=== PATIENT | male | born 1955 | race Caucasian/White ===

== ENCOUNTER 2016-03-09 18:15 | Emergency (ER) | payer OTHER ==
[2016-03-09 19:00] VITALS: BP 162/88
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
== END 2016-03-09 21:43 | disposition home or self-care (01) ==
LOC: UCEAST 18:15
DX: S46.312A Strain of muscle, fascia and tendon of triceps, left arm, initial encounter (principal); V18.0XXA Pedal cycle driver injured in noncollision transport accident in nontraffic accident, initial encounter; Y93.55 Activity, bike riding; Y92.9 Unspecified place or not applicable; I10 Essential (primary) hypertension; Z79.01 Long term (current) use of anticoagulants; Z87.891 Personal history of nicotine dependence
CPT/HCPCS: 99213; G0463

== ENCOUNTER → 2016-04-03 09:20 | Day surgery (SDC) | payer OTHER ==
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
[~2016-04-03 09:20] MED LIST: Buffered Lidocaine 1% SYR 3ML* 3 ML/SYR SYRINGE INTRADERM ONE; Buffered Lidocaine 1% SYR 3ML* 3 ML/SYR SYRINGE ONE; Bupivacaine 0.5% SDV PF* 30 ML VIAL ONE; HYDROcodone/ACETAMIN 5-325 MG* 1 TAB ONE; Ketorolac INJ* 30 MG/ML 1 ML VIAL IV PRN; Ketorolac INJ* 30 MG/ML 1 ML VIAL ONE; Lidocaine 2% PF * 5 ML VIAL ONE; Midazolam* 1 MG/ML 2 ML VIAL (2 MG) ONE; Ondansetron INJ* 2 MG/ML VIAL IV PRN; Ondansetron INJ* 2 MG/ML VIAL ONE; Phenylephrine IV* 40 MCG/ML 10 ML SYRINGE ONE; Propofol* 10 MG/ML 20 ML BTL IV PUSH ONE; Sodium Citrate/Citric Acid* 15 ML UDC ONE; Sodium Citrate/Citric Acid* 15 ML UDC PO ONE; ceFAZolin 2 GM PREMIX (*) 2 GM/50 ML BAG IVPB ONE; fentaNYL* 50 MCG/ML 2 ML VIAL (100 MCG VIAL) IV PRN; fentaNYL* 50 MCG/ML 2 ML VIAL (100 MCG VIAL) IV SLOW PU PRN; fentaNYL* 50 MCG/ML 2 ML VIAL (100 MCG VIAL) ONE
[2016-04-03 15:21] VITALS: BP 149/95
--- NOTE | 2016-04-04 01:25 | OP ---
DATE OF OPERATION: 04/03/16 [facility] DATE OF : 51 SURGEON: Erika Rodriguez MD PHYSICIAN IN PRIVATE PRACTICE: BHAVIN Littlejohn ANESTHESIOLOGIST: Doyle Fernández DO ANESTHESIA: General. PRE-OP DIAGNOSIS: Triceps tendon rupture on the left. POST-OP DIAGNOSIS: Triceps tendon rupture on the left. OPERATIVE PROCEDURE: Left triceps tendon repair. ESTIMATED BLOOD LOSS: Zero. TOURNIQUET TIME: About 70 minutes. INDICATIONS FOR PROCEDURE: Abdelrahman is a 60-year-old male who ruptured his left triceps tendon about 3 weeks ago. He presents for repair. The patient canceled the surgery on two separate occasions. DESCRIPTION OF PROCEDURE: The patient was brought to the operating room, was given a general anesthetic, and placed in the supine position on the operating table. The skin of his left upper extremity was prepped and draped in the usual sterile fashion. The upper extremity was exsanguinated and the tourniquet elevated to 250 mmHg. A longitudinal incision was made on the posterior aspect of the elbow. We dissected sharply down to the triceps tendon, which had considerable adhesions surrounding it. The adhesions were carefully dissected away and the ulnar nerve was located and kept out of the surgical area. Two whipstitches with a #2 FiberWire suture were placed in the triceps tendon and then two diagonal holes were drilled through the olecranon process and the sutures were fed through these holes. With elbow extension, we were able to reapproximate the triceps tendon to the olecranon. Additionally, two Mitek suture anchors with #2 Ethibond suture were secured in the proximal olecranon after drilling the appropriate hole. The suture anchors were placed through the tendon and then the whipstitch sutures in the drill holes were tied down followed by tying the suture anchor sutures. Range of motion did not cause any gapping at the repair site. The subcutaneous tissue was closed with 2-0 Polysorb suture and the skin with skin hcivo. The wound was dressed with Xeroform, 4x4, Webril, ABD, and an Barron wrap and the patient was placed in a range of motion brace with 0 to 30 degrees in motion. The patient tolerated the procedure well, was awakened from general anesthesia, and brought to the recovery room in good condition. [id number]/[facility] #: [id number] [facility]ISCH HOSPITALNallely
== END | disposition home or self-care (01) ==
LOC: OREAST 09:20
PROVIDERS: ATTEND Orthopaedic Surgery
DX: S46.312A Strain of muscle, fascia and tendon of triceps, left arm, initial encounter (principal); Z79.01 Long term (current) use of anticoagulants; I10 Essential (primary) hypertension; E78.00 Pure hypercholesterolemia, unspecified; J45.909 Unspecified asthma, uncomplicated; V19.3XXA Pedal cyclist (driver) (passenger) injured in unspecified nontraffic accident, initial encounter; Y93.55 Activity, bike riding; Y92.9 Unspecified place or not applicable
CPT/HCPCS: A9270-GY; C1776; J0690; J1885; J2250; J2405; J2704; J3010

== ENCOUNTER 2016-08-30 08:13 | Day surgery (SDC) | payer OTHER ==
--- NOTE | 2016-08-16 14:41 | HP ---
CC: Taras Tirado MD; Yash Maurice MD; Rigo Bloom MD HISTORY AND PHYSICAL: DATE OF SURGERY: 08/23/16 PATIENT OF: Eliud Mosher MD CHIEF COMPLAINT: Prolapsing hemorrhoids with occasional pain and bleeding. HISTORY OF PRESENT ILLNESS: Ms. Angulo is a pleasant 61-year-old gentleman who was referred to our office from Dr. Yash Maurice with complaints of chronic problems with hemorrhoids. The patient d escribed what sounded like a prolapsing hemorrhoid that has been going on and off for the past few y ears. On occasion, he would have constipation and noted painful bleeding, prolapsing hemorrhoids. He has been increasing his fiber intake with diet. Also, he still occasionally has some constipatio n and sometimes that leads to straining at bowel movements. He has never had any surgeries to his h emorrhoids in the past. He denies any history of inflammatory bowel disease such as Crohn's or ulce rative colitis. Since he was seen in the office last month, the patient reports occasional minimal rectal bleeding, but denies any excessive rectal bleeding or changes in the bowel habits. He returns to the office today to discuss examination under anesthesia with anoscope and possible hemorrhoidal banding given his ongoing problems with bleeding and prolapsing hemorrhoids. PAST MEDICAL HISTORY: Significant for peripheral vascular disease and carotid stenosis for which pal sanchez patient had an endarterectomy with Dr. Mcdaniel at [facility] back in February 2015. Pal sanchez patient also has history of hypertension, hyperlipidemia, migraine headaches, physiological palpit ations, mitral regurgitation with mild LVH and his last echocardiogram was done in February of last year. He also has a history of obesity, degenerative disk disease of the lumbar area, exercise-cira valentina asthma, sleep apnea, and hemorrhoids. PAST SURGICAL HISTORY: Significant for right hand tendon release back in 2008, foot surgery to the right metatarsal osteotomy, carpal tunnel release bilaterally back in 2005, ganglionic cystectomy on the right hand. He also had history of umbilical hernia repair back in October 2013, as well as a l eft arm triceps tendon repair in March of this year. As mentioned above, the patient had a right carotid endarterectomy back in February 2015. CURRENT MEDICATIONS: His medications at home include, 1. Omeprazole 20 mg b.i.d., which the patient takes as p.r.n. for heartburn. 2. Hydrocortisone 25 mg rectally has been taken in for the past 2 weeks. 3. Citrucel 1 tablet in 8 ounce water by mouth for fiber intake. 4. Meclizine 25 mg 3 times daily as needed for migraine headaches and vertigo. 5. Valsartan/hydrochlorothiazide 80/12.5 once daily. 6. Lovastatin 40 mg q.h.s. 7. Amitriptyline 10 mg half a tablet q.h.s. 8. Coenzyme Q10, 100 mg once daily. 9. Testosterone cream 50 mg, apply once to the skin once daily. 10. Zofran 4 mg once every 6 hours as needed for nausea. 11. Nasonex 50 mcg spray in each nostril every day. 12. Advair Diskus 500/50, 1 puff by mouth daily. 13. Viagra 100 mg 1 tablet as needed. 14. Ventolin HFA 180 mcg 2 puffs 4 times a day p.r.n. for shortness of breath. 15. Plavix 75 mg once daily. 16. Multivitamin 1 tablet every day. ALLERGIES: He is allergic to CAT and DOG DANDRUFF, as well as LIPITOR and LISINOPRIL. FAMILY HISTORY: He denies any family history of colorectal malignancies. SOCIAL HISTORY: The patient is . He lives with his . 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 He is a former smoker who smoked between 1969 and 1979, has not been smoking since. He currently c onsumes alcohol, 2 mixed drinks per day. He denies illicit drug use. REVIEW OF SYSTEMS: See HPI, otherwise negative. He denies any headache, syncope, blurred vision or double vision. No sore throat, cough, shortness of breath or chest pain. He denies any flank pain , dysuria, hematuria or urinary frequency. No abdominal pain, nausea, vomiting, or recent changes i n the bowel habits. He admits to occasional constipation for which he has been increasing his fiber intake. He strains at times with bowel movement leading to prolapse small hemorrhoid with occasion al minor bleeding. No fever, chills, night sweats or recent weight loss. PHYSICAL EXAMINATION VITAL SIGNS: His vitals today revealed a blood pressure of 132/88, temperature of 98, respiration o f 16, pulse 86. He weighs 206 pounds on 5 feet 6 inches height with a BMI of 33.8. HEENT: Sclerae anicteric. PERRLA. EOMs intact. Oropharynx is pink and moist with no exudate. NECK: Supple. Trachea midline. No cervical adenopathy, thyromegaly or JVD. LUNGS: Clear to auscultation bilaterally. HEART: Regular rate and rhythm. Normal S1 and S2 without rubs, murmurs or gallops. BACK: Normal curvature. No CVA tenderness. ABDOMEN: Soft, nontender and nondistended. No hernias, masses or hepatosplenomegaly. A small inci felisha, periumbilical from prior hernia repair well healed with no evidence of recurrent hernia. RECTAL: Deferred at this time. EXTREMITIES: Without cyanosis, clubbing or edema. NEUROLOGIC: Grossly intact. IMPRESSION: A 61-year-old gentleman with signs and symptoms consistent with occasional prolapsing and bleeding hemorrhoids. PLAN: The patient was examined by Dr. Mosher earlier this month, revealing a small prolapsing hemor rhoid. He was offered the option of doing an anoscope with banding in the office; however, the nic ent due to pain was unable to tolerate the procedure. He will be scheduled to undergo an examinatio n under anesthesia with anoscope and possible hemorrhoidal banding on 08/23/16 to be performed by Dr Luis Fernando Mosher. The patient was seen by his director rehabilitation program last week and he was cleared to undergo surgery. The rationale, indications, risks and benefits of performing an examination under anesthesia and a noscopy was discussed with him today. Risks include but not limited to infection, bleeding or injur y to adjacent structures. We also discussed with him the possibility of hemorrhoidal banding if nece ssary during the procedure; however, according to Dr. Mosher's impression, the patient will not unde rgo any extensive hemorrhoidectomy or anything in that nature unless absolutely necessary. As rachna ingram above, given his cardiovascular history and carotid stenosis in the past, the patient was seen by his director rehabilitation program and found to be at low risk to undergo surgery. He was advised to hold his Plav ix for 7 days prior to surgery. We will plan to see him back in the office a week after surgery for followup. [facility] Balta BAÑUELOS, BHAVIN [id number]/[facility] #: [id number]
[~2016-08-30 08:13] MED LIST changes: +Buffered Lidocaine 0.9% SYRIN* 5 ML/SYR SYRINGE INTRADERM ONE; +Buffered Lidocaine 0.9% SYRIN* 5 ML/SYR SYRINGE ONE; -Buffered Lidocaine 1% SYR 3ML* 3 ML/SYR SYRINGE INTRADERM ONE; -Buffered Lidocaine 1% SYR 3ML* 3 ML/SYR SYRINGE ONE; -Bupivacaine 0.5% SDV PF* 30 ML VIAL ONE; +Dexamethasone TAB* 4 MG PO ONE; +Famotidine IV* 10 MG/ML 2 ML (20 mg) IV ONE; +Famotidine IV* 10 MG/ML 2 ML (20 mg) ONE; -HYDROcodone/ACETAMIN 5-325 MG* 1 TAB ONE; -Ketorolac INJ* 30 MG/ML 1 ML VIAL IV PRN; -Ketorolac INJ* 30 MG/ML 1 ML VIAL ONE; -Lidocaine 2% PF * 5 ML VIAL ONE; +Metoclopramide TAB* 10 MG ONE; +Metoclopramide TAB* 10 MG PO ONE; -Midazolam* 1 MG/ML 2 ML VIAL (2 MG) ONE; -Ondansetron INJ* 2 MG/ML VIAL IV PRN; -Ondansetron INJ* 2 MG/ML VIAL ONE; -Phenylephrine IV* 40 MCG/ML 10 ML SYRINGE ONE; -Propofol* 10 MG/ML 20 ML BTL IV PUSH ONE; -Sodium Citrate/Citric Acid* 15 ML UDC ONE; -Sodium Citrate/Citric Acid* 15 ML UDC PO ONE; -ceFAZolin 2 GM PREMIX (*) 2 GM/50 ML BAG IVPB ONE; +ceFAZolin 2 GM PREMIX(*) 2 GM/50 ML BAG IVPB ONE; -fentaNYL* 50 MCG/ML 2 ML VIAL (100 MCG VIAL) IV PRN; -fentaNYL* 50 MCG/ML 2 ML VIAL (100 MCG VIAL) IV SLOW PU PRN; -fentaNYL* 50 MCG/ML 2 ML VIAL (100 MCG VIAL) ONE
[2016-08-30] MEDS ORDERED: fentaNYL* 50 MCG/ML 2 ML VIAL (100 MCG VIAL) ONE (09:02)
[2016-08-30] MEDS ORDERED: Dexamethasone IV* 4 MG/ML 1 ML (4 MG) ONE (09:02)
[2016-08-30] MEDS ORDERED: Midazolam* 1 MG/ML 5 ML VIAL (5 MG) ONE (09:02)
[2016-08-30] MEDS ORDERED: Lidocaine 2% PF * 5 ML VIAL ONE (09:02)
[2016-08-30] MEDS ORDERED: Propofol* 10 MG/ML 20 ML BTL IV PUSH ONE (09:02)
[2016-08-30] MEDS ORDERED: Ketorolac INJ* 30 MG/ML 1 ML VIAL ONE (09:02)
[2016-08-30] MEDS ORDERED: Ondansetron INJ* 2 MG/ML VIAL ONE (09:02)
[2016-08-30] MEDS ORDERED: KETAMINE HCL* 50 MG/ML 10 ML VIAL ONE (09:02)
[2016-08-30] MEDS ORDERED: Lidocaine 2% JELLY* 6 ML JELLY TOPICAL ONE (09:15)
[2016-08-30] MEDS ORDERED: Bupivacaine 0.25% EPI 200,000* 30 ML SDV ONE (09:16)
[2016-08-30] MEDS ORDERED: Midazolam* 1 MG/ML 2 ML VIAL (2 MG) ONE (09:50)
[2016-08-30] MEDS ORDERED: oxyCODONE/Acetamin 5/325 MG* TAB PO PRN ×2 (10:09→11:12)
[2016-08-30] MEDS ORDERED: Ondansetron INJ* 2 MG/ML VIAL IV PRN (11:12)
[2016-08-30] MEDS ORDERED: fentaNYL* 50 MCG/ML 2 ML VIAL (100 MCG VIAL) IV PRN (11:12)
[2016-08-30 11:49] VITALS: BP 141/102
--- NOTE | 2016-08-31 10:29 | OP ---
CC: Dr. Mosher; Dr. Yash Maurice; Dr. Bloom; Dr. Tirado OPERATIVE REPORT: DATE OF OPERATION: 08/30/16 DATE OF : 51 SURGEON: Eliud Mosher MD CARBON FURNACE OPERATOR: None. ANESTHESIOLOGIST: Dr. Briseno. ANESTHESIA: LMAC anesthesia. PRE-OP DIAGNOSIS: Internal and external hemorrhoids. POST-OP DIAGNOSIS: Internal and external hemorrhoids. OPERATIVE PROCEDURE: Anoscopy with banding of internal hemorrhoids. DESCRIPTION OF PROCEDURE: Patient was supine on the operating table. After being placed in the pro ne jennifer-knife position, the buttocks were taped apart. He was given intravenous sedation and intrav enous antibiotics. The area was prepped with antiseptic, draped in a sterile fashion. Anoscopy was carried out and internal and external hemorrhoids were identified. It was decided that banding wou ld be carried out and the three largest clusters were successfully banded. The external components were left alone. As per discussion with the patient prior, it was decided that no aggressive surger y will be carried out unless absolutely necessary. The bands were in good position. Local anestheti c was administered. A gauze dressing was placed. He was brought to recovery in good condition. No complications. No drains. No pathologic specimens. Sponge and instrument counts correct. Estima az blood loss less than 10 mL. [id number]/[facility] #: [id number]
== END 2016-08-30 12:30 | disposition home or self-care (01) ==
LOC: OR 08:13
PROVIDERS: ATTEND Surgery
DX: K64.8 Other hemorrhoids (principal); K64.4 Residual hemorrhoidal skin tags; I10 Essential (primary) hypertension; E78.5 Hyperlipidemia, unspecified; E66.9 Obesity, unspecified; G43.909 Migraine, unspecified, not intractable, without status migrainosus; J45.990 Exercise induced bronchospasm; G47.30 Sleep apnea, unspecified; I73.9 Peripheral vascular disease, unspecified; I34.0 Nonrheumatic mitral (valve) insufficiency; Z79.02 Long term (current) use of antithrombotics/antiplatelets; Z88.8 Allergy status to other drugs, medicaments and biological substances; Z87.891 Personal history of nicotine dependence; Z68.33 Body mass index [BMI] 33.0-33.9, adult
CPT/HCPCS: A9270-GY; J0690; J1100; J1885; J2250; J2405; J2704; J3010

== ENCOUNTER 2017-02-17 14:28 | Emergency (ER) | payer BC ==
[2017-02-17 15:08] VITALS: BP 160/103
--- NOTE | 2017-02-21 19:53 | UC ---
Head Injury HPI - HPI Summary HPI Summary: 61 year old male presents with severe head injury and concussion secondary to falling while ice skating. - History Of Current Complaint Chief Complaint: UCDizziness Stated Complaint: DIZZINESS Onset/Duration: Sudden Onset Severity Currently: Moderate Severity Initially: Moderate Pain Intensity: 8 Pain Scale Used: Adult Non Verbal Aggravating Factor(s): Unknown Alleviating Factor(s): Nothing Associated Signs And Symptoms: Positive: Confusion, Neck Pain, Nausea, Vomiting - Allergies/Home Medications Allergies/Adverse Reactions: Allergies Allergy/AdvReac Type Severity Reaction Status Date / Time Lactose Intolerance (GI) Allergy GI PROBLEMS Verified 02/17/17 15:00 Home Medications: Home Medications Fluticasone-Salmeterol 100-50* [Advair Diskus 100-50*] 1 puff INH BID 02/17/17 [ History Confirmed 02/17/17] PMH/Surg Hx/FS Hx/Imm Hx - Surgical History Surgical History: Yes Surgery Procedure, Year, and Place: CARPAL TUNNEL X 2. RIGHT THUMB TENDON 2008. GANLION CYST REMOVED- RING FINGER RIGHT HAND. RIGHT FOOT OSTEOTOMY- 2007. CYST REMOVED FROM EYE A CHILD. LEFT FOOT OSTEOTOMY. 02/2015 RT CAROIDID ENDARDERECTOMY CASSIDY. UMBILICAL HERNIA WITH MESH. RUPTURED LEFT UPPER ARM TENDON-03/2016 - Family History Known Family History: Positive: Hypertension - Social History Alcohol Use: Daily Alcohol Amount: 1-2 DRINK PER NIGHT Substance Use Type: None Smoking Status (MU): Former Smoker Type: Cigarettes Amount Used/How Often: 1 PPD X 6 YEARS Have You Smoked in the Last Year: No When Did the Patient Quit Smoking/Using Tobacco: 1979 Review of Systems Constitutional: Fatigue Skin: Negative Eyes: Negative ENT: Negative Respiratory: Negative Cardiovascular: Negative Gastrointestinal: Negative Genitourinary: Negative Motor: Negative Neurovascular: Negative Musculoskeletal: Negative Neurological: Headache, Weakness Psychological: Negative All Other Systems Reviewed And Are Negative: Yes Physical Exam Triage Information Reviewed: Yes Vital Signs: Initial Vital Signs Temp 36.7 C 02/17/17 14:30 Pulse 85 02/17/17 14:30 Resp 20 02/17/17 14:30 BP 160/103 02/17/17 14:30 Pulse Ox 98 02/17/17 14:30 Vital Signs Reviewed: Yes Eye Exam: Normal ENT Exam: Normal Dental Exam: Normal Neck exam: Normal Neck: Positive: 1 Respiratory Exam: Normal Cardiovascular Exam: Normal Abdominal Exam: Normal Musculoskeletal Exam: Normal Neurological Exam: Normal Psychological Exam: Normal Skin Exam: Normal Head Injury Course/Dx - Differential Dx/Diagnosis Provider Diagnoses: head injury. concussion Discharge - Discharge Plan Condition: Stable Disposition: OTHER Discharge Disposition Comment: patient suggested to go to the er Patient Education Materials: Concussion (ED), Head Injury (ED) Referrals: Yash Maurice MD [Primary Care Provider] - Additional Instructions: patient suggested to go to the er.
== END 2017-02-17 14:40 ==
LOC: UCEAST 14:28
DX: S06.0X9A Concussion with loss of consciousness of unspecified duration, initial encounter (principal); V00.211A Fall from ice-skates, initial encounter; Y93.21 Activity, ice skating; Y92.330 Ice skating rink (indoor) (outdoor) as the place of occurrence of the external cause; Z87.891 Personal history of nicotine dependence
CPT/HCPCS: 99202; G0463

== ENCOUNTER 2017-02-17 15:03 | Emergency (ER) | payer BC ==
--- NOTE | 2017-02-17 17:08 | RAD ---
HISTORY: Head injury COMPARISONS: MRI dated December 09, 2008 TECHNIQUE: Multiple contiguous axial CT scans were obtained of the head without intravenous contrast. FINDINGS: HEMORRHAGE/INFARCT: There is no hemorrhage or acute infarct. MASSES/SHIFT: There is no mass or shift. EXTRA-AXIAL SPACES: Again noted is an arachnoid cyst of the right middle cranial fossa. This is stable. SULCI AND VENTRICLES: The sulci and ventricles are normal in size and position for the patient's stated age. CEREBRUM: There are no focal parenchymal abnormalities. BRAINSTEM: There are no focal parenchymal abnormalities. CEREBELLUM: There are no focal parenchymal abnormalities. VESSELS: The vessels are grossly normal. PARANASAL SINUSES: The paranasal sinuses are clear. ORBITS: The orbits are unremarkable. BONES AND SOFT TISSUE: No bone or soft tissue abnormalities are noted. OTHER: None IMPRESSION: NO ACUTE INTRACRANIAL PATHOLOGY.
[2017-02-17] MEDS ORDERED: Ondansetron ODT TAB* 4 MG PO ONE ×2 (17:27→17:42)
--- NOTE | 2017-02-17 17:41 | ED ---
Head Injury - HPI Summary HPI Summary: 61M presents with head injury yesterday. He states that he was ice skating and fell and hit his head. He denies any LOC. He admits to neck pain that started this morning. He is not on blood thinners. He states that he is dizzy. she is also nauseous but no vomiting. He states developed a headache after watching tv last night but it is worst this morning. He denies any other injury. He denies any photophobia or change in vision. - History Of Current Complaint Chief Complaint: EDHeadInjury Stated Complaint: CAT SCANN NEEDED-CC TRANSFER Time Seen by Provider: 02/17/17 16:39 Pain Intensity: 3 - Allergies/Home Medications Allergies/Adverse Reactions: Allergies Allergy/AdvReac Type Severity Reaction Status Date / Time Lactose Intolerance (GI) Allergy GI PROBLEMS Verified 02/17/17 15:00 PMH/Surg Hx/FS Hx/Imm Hx Cardiovascular History: Reports: Hx Coronary Artery Disease, Hx Hypercholesterolemia, Hx Hypertension - ON DAILY MEDS, Hx Valvular Heart Disease - SLIGHT LEAK ON SOME VALVES, Other Cardiovascular Problems/Disorders - S/P CAROTIDECTOMY Respiratory History: Reports: Hx Asthma - HAS PRN INHALERS, Hx Sleep Apnea - DOES NOT USE CPAP, Other Respiratory Problems/Disorders - ALLERGY INJECTIONS EVERY 2 WEEKS GI History: Reports: Hx Gastroesophageal Reflux Disease - RECENTLY HAS IMPROVED , Hx Irritable Bowel - IMPROVING RECENTLY, Other GI Disorders - STEATOSIS History: Reports: Hx Renal Disease - cysts per pt Denies: Hx Kidney Stones Musculoskeletal History: Reports: Hx Arthritis - TOES,LOWER BACK, HANDS, Hx Back Problems - degenerative discs, Other Musculoskeletal History - 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 RIGHT THUMB TENDON 2008. GANLION CYST REMOVED- RING FINGER RIGHT HAND. RIGHT FOOT OSTEOTOMY- 2007. CYST REMOVED FROM EYE A CHILD. LEFT FOOT OSTEOTOMY. 02/2015 RT CAROIDID ENDARDERECTOMY CASSIDY. UMBILICAL HERNIA WITH MESH. RUPTURED LEFT UPPER ARM TENDON-03/2016 Hx Anesthesia Reactions: No Infectious Disease History: No Infectious Disease History: Reports: Hx Hepatitis - Hx HEP.B, NO Sx OTHER THEN BLOODBANK YEARS AGO TOLD OF ELEVATION AND CAN'T Denies: Hx Clostridium Difficile, Hx Human Immunodeficiency Virus (HIV), Hx of Known/Suspected MRSA, Hx Shingles, Hx Tuberculosis, Hx Known/Suspected VRE, Hx Known/Suspected VRSA, History Other Infectious Disease, Traveled Outside the [place] in Last 30 Days - Family History Known Family History: Positive: Hypertension - Social History Alcohol Use: Daily Alcohol Amount: 1-2 DRINK PER NIGHT Substance Use Type: Reports: None Smoking Status (MU): Former Smoker Type: Cigarettes Amount Used/How Often: 1 PPD X 6 YEARS Have You Smoked in the Last Year: No Review of Systems Negative: Fever Negative: Chest Pain Negative: Shortness Of Breath Positive: Nausea Positive: Headache All Other Systems Reviewed And Are Negative: Yes Physical Exam Triage Information Reviewed: Yes Vital Signs On Initial Exam: Initial Vitals Temp Pulse Resp BP Pulse Ox 98.3 F 91 17 153/99 98 02/17/17 15:09 02/17/17 15:09 02/17/17 15:09 02/17/17 15:09 02/17/17 15:09 Vital Signs Reviewed: Yes Appearance: Positive: Well-Appearing Skin: Positive: Warm, Dry Head/Face: Positive: Normal Head/Face Inspection, Other - no step off, racoon eyes, faulkner sign Eyes: Positive: Normal, EOMI, ESTER, Conjunctiva Clear ENT: Positive: Normal ENT inspection, Pharynx normal, TMs normal Respiratory/Lung Sounds: Positive: Clear to Auscultation, Breath Sounds Present Cardiovascular: Positive: Normal, RRR Abdomen Description: Positive: Nontender, Soft Bowel Sounds: Positive: Present Musculoskeletal: Positive: Normal, Strength/ROM Intact - neck, Other - tenderness on side of neck Neurological: Positive: Sensory/Motor Intact, Alert, Oriented to Person Place, Time, CN Intact II-III Psychiatric: Positive: Normal - Pillager Coma Scale Best Eye Response: 4 - Spontaneous Best Motor Response: 6 - Obeys Commands Best Verbal Response: 5 - Oriented Coma Scale Total: 15 Diagnostics - Vital Signs Vital Signs Temp Pulse Resp BP Pulse Ox 02/17/17 16:40 78 96 02/17/17 15:09 98.3 F 91 17 153/99 98 - Laboratory Lab Statement: Any lab studies that have been ordered have been reviewed, and results considered in the medical decision making process. - CT brain CT Interpretation: No Acute Changes CT Interpretation Completed By: Radiologist Head Injury Course/Dx Course Of Treatment: 61M presents with head injury yesterday. He states that he was ice skating and fell and hit his head. He denies any LOC. He admits to neck pain that started this morning. He is not on blood thinners. He states that he is dizzy. she is also nauseous but no vomiting. He states developed a headache after watching tv last night but it is worst this morning. He denies any other injury. He denies any photophobia or change in vision. on exam nystagmus eyes otherwise normal neuro exam. no midline tenderness neck. CT brain normal. discussed that likely has concussion with symptoms that area present. told to follow up with primary. patient understand and agrees with plan. - Diagnoses Differential Diagnosis/HQI/PQRI: Concussion Without LOC, Contusion, Intracranial Bleed Provider Diagnoses: Head injury, Neck pain Discharge - Discharge Plan Condition: Good Disposition: HOME Prescriptions: Ondansetron TAB* [Zofran 4 MG Tab*] 4 mg PO Q6H PRN #12 tab PRN Reason: Nausea Patient Education Materials: Head Injury (ED) Referrals: Yash Maurice MD [Primary Care Provider] - Additional Instructions: Place ice on area as needed Take Tylenol for headache every 6 hours Take zofran every 6 hours for nausea Modify activities as tolerated Follow up with primary within 5 days Return to ED if develop vomiting, severe headache, change in behavior, or any new or worsening symptoms
[2017-02-17 17:58] VITALS: BP 127/84
== END 2017-02-17 17:57 | disposition home or self-care (01) ==
LOC: ED 15:03
DX: S09.90XA Unspecified injury of head, initial encounter (principal); M54.2 Cervicalgia; V00.211A Fall from ice-skates, initial encounter; Y93.21 Activity, ice skating; Y92.330 Ice skating rink (indoor) (outdoor) as the place of occurrence of the external cause; Y99.9 Unspecified external cause status; Z87.891 Personal history of nicotine dependence
CPT/HCPCS: 70450; 99282; A9270-GY

== ENCOUNTER 2018-09-20 13:39 | Emergency (ER) | payer MEDICARE ==
[2018-09-20 13:53] VITALS: BP 146/92
--- NOTE | 2018-09-20 14:22 | UC ---
Upper Extremity HPI - HPI Summary HPI Summary: 63-year-old male who was skating today when his skate went out from under him and he fell landing on his right shoulder. He complains of pain to the shoulder as well as the mid-humerus. He denies hitting his head and denies any neck pain. - History of Current Complaint Chief Complaint: UCUpperExtremity Stated Complaint: ARM INJURY Time Seen by Provider: 09/20/18 14:04 Hx Obtained From: Patient ?: No Onset/Duration: Sudden Onset Severity Initially: Moderate Severity Currently: Moderate Pain Intensity: 8 Location Of Pain: Is Discrete @ - Right mid humerus and right shoulder Character: Dull, Aching Aggravating Factor(s): Movement - Although the patient states that he can move his shoulder as he is describing the injury to me he does move his arm quite well however he does not put his shoulder through complete range of motion. Alleviating Factor(s): Rest - Patient applied his own arm sling however it is somewhat short for his arm. - Allergies/Home Medications Allergies/Adverse Reactions: Allergies Allergy/AdvReac Type Severity Reaction Status Date / Time lactose Allergy GI Upset Verified 09/20/18 13:42 Home Medications: Home Medications Acetaminophen [Masophen] 1,000 mg PO DAILY 09/20/18 [History Confirmed 09/20/18] Amitriptyline HCl 1 tab PO QPM 09/20/18 [History Confirmed 09/20/18] Lactase [Lactaid] 9,000 mg PO DAILY 09/20/18 [History Confirmed 09/20/18] Valsartan 40 mg PO DAILY 09/20/18 [History Confirmed 09/20/18] hydrOXYzine pamoate [Vistaril] 1 tab PO QPM PRN 09/20/18 [History Confirmed ] PMH/Surg Hx/FS Hx/Imm Hx Previously Healthy: Yes Cardiovascular History: Hypertension Respiratory History: Asthma Other History Of: Hepatitis B - Surgical History Surgical History: Yes Surgery Procedure, Year, and Place: CARPAL TUNNEL X 2. RIGHT THUMB TENDON 2008. GANLION CYST REMOVED- RING FINGER RIGHT HAND. RIGHT FOOT OSTEOTOMY- 2007. CYST REMOVED FROM EYE A CHILD. LEFT FOOT OSTEOTOMY. 02/2015 RT CAROIDID ENDARDERECTOMY CASSIDY. UMBILICAL HERNIA WITH MESH. RUPTURED LEFT UPPER ARM TENDON-03/2016 - Family History Known Family History: Positive: Hypertension - Social History Alcohol Use: Daily Alcohol Amount: 1-2 DRINK PER NIGHT Substance Use Type: None Smoking Status (MU): Former Smoker Type: Cigarettes Amount Used/How Often: 1 PPD X 6 YEARS Have You Smoked in the Last Year: No When Did the Patient Quit Smoking/Using Tobacco: 1979 Review of Systems All Other Systems Reviewed And Are Negative: Yes Motor: Positive: Decreased ROM Musculoskeletal: Positive: Decreased ROM - Patient states decreased range of motion of his right shoulder, pain on palpation to the right shoulder and mid humerus. Is Patient Immunocompromised?: No Physical Exam Triage Information Reviewed: Yes Appearance: Well-Appearing, No Pain Distress, Well-Nourished Vital Signs: Initial Vital Signs Temp 98 F 09/20/18 13:50 Pulse 97 09/20/18 13:50 Resp 18 09/20/18 13:50 BP 146/92 09/20/18 13:50 Pulse Ox 100 09/20/18 13:50 Vital Signs Reviewed: Yes Neck: Positive: Supple, Nontender, No Lymphadenopathy - No C-spine tenderness. Respiratory: Positive: Chest non-tender Musculoskeletal: Positive: Strength Intact, No Edema, Other: - Good hand and finger strength against resistance. Forearm is nontender, elbow is nontender. Tenderness on palpation mid humerus no bruising, erythema, deformity or swelling is noted. Pain no palpation to the anterior shoulder area. Neurological: Positive: Alert, Muscle Tone Normal Skin Exam: Normal Upper Extremity Course/Dx - Course Course Of Treatment: Right shoulder:4 views of the right shoulder demonstrates AC joint arthritis. No fracture or dislocation noted. No other bone or joint identified. IMPRESSION: AC joint arthritis without fracture. Right humerus: 2 views of the humerus demonstrates no fracture or dislocation. No other bone or joint abnormality is noted. IMPRESSION: No fracture of the right humerus is noted. The patient is to apply ice to the sore areas and he will be given a sling that fits appropriately. He is to follow-up with the orthopedist in 2 or 3 days if no improvement. - Differential Dx/Diagnosis Provider Diagnosis: Contusion of right shoulder, Contusion of right upper arm Discharge - Sign-Out/Discharge Documenting (check all that apply): Patient Departure All imaging exams completed and their final reports reviewed: Yes - Discharge Plan Condition: Fair Disposition: HOME Patient Education Materials: Shoulder Pain (ED) Referrals: Yadiel Monet MD [Medical Doctor] - Eladio Lind NP [Primary Care Provider] - Additional Instructions: My ice to the sore areas intermittently over the next one or 2 days on 20 minutes off 20 minutes. May take Tylenol or Motrin for pain. Definite follow- up with the orthopedist on Saturday or Saturday if no improvement. He may use the arm sling for comfort as needed. - Billing Disposition and Condition Condition: FAIR Disposition: Home
== END 2018-09-20 14:45 | disposition home or self-care (01) ==
LOC: UCEAST 13:39
DX: S40.011A Contusion of right shoulder, initial encounter (principal); S40.021A Contusion of right upper arm, initial encounter; W01.0XXA Fall on same level from slipping, tripping and stumbling without subsequent striking against object, initial encounter; Y93.51 Activity, roller skating (inline) and skateboarding; Y92.838 Other recreation area as the place of occurrence of the external cause; Y99.8 Other external cause status; I10 Essential (primary) hypertension; J45.909 Unspecified asthma, uncomplicated; B19.10 Unspecified viral hepatitis B without hepatic coma
CPT/HCPCS: 99212; G0463

== ENCOUNTER → 2018-11-26 | Day surgery (SDC) | payer MEDICARE ==
[~2018-11-26] MED LIST changes: +Acetaminophen IV 1GM/100ML * 1,000 MG/100 ML VIAL IVPB ONE; +Acetaminophen IV 1GM/100ML * 100 ML ONE; -Buffered Lidocaine 0.9% SYRIN* 5 ML/SYR SYRINGE INTRADERM ONE; -Buffered Lidocaine 0.9% SYRIN* 5 ML/SYR SYRINGE ONE; +Buffered Lidocaine 1% SYRIN* 1 ML/SYRINGE INTRADERM ONE; +Dexamethasone IV* 4 MG/ML 1 ML (4 MG) ONE; -Dexamethasone TAB* 4 MG PO ONE; +Dexmedetomidine* 200 MCG/2 ML 2 ML VIAL ONE; +DiMENhydriNATE IV* 50 MG/ML VIAL IV PUSH PRN; +EPHEDrine (Pressors)* 50 MG/ML VIAL ONE; -Famotidine IV* 10 MG/ML 2 ML (20 mg) IV ONE; -Famotidine IV* 10 MG/ML 2 ML (20 mg) ONE; +HYDROmorphone INJ1* 1 MG/ML SYRINGE IV PRN; +Ketorolac INJ* 30 MG/ML 1 ML VIAL ONE; +Lactated Ringers 1000 ML Bag* 1,000 ML IV SCH; +Lidocaine 2% PF * 5 ML VIAL ONE; +Metoclopramide IV* 5 MG/ML 2 ML VIAL ONE; -Metoclopramide TAB* 10 MG ONE; -Metoclopramide TAB* 10 MG PO ONE; +Midazolam* 1 MG/ML 2 ML VIAL (2 MG) ONE; +Naloxone* 0.4 MG/ML 1 ML VIAL IV PRN; +Ondansetron INJ* 2 MG/ML VIAL ONE; +Propofol* 10 MG/ML 20 ML BTL ONE; +ROPIVACAINE 5 MG/ML 30 ML BTL (0.5%) ONE; +Rocuronium* 10 MG/ML VIAL ONE; +Ropivacaine 0.2% * 2 MG/ML VIAL ONE; +ceFAZolin 2 GM PREMIX in ORs 2 GM/50 ML BAG ONE; -ceFAZolin 2 GM PREMIX(*) 2 GM/50 ML BAG IVPB ONE; +fentaNYL* 50 MCG/ML 2 ML VIAL (100 MCG VIAL) ONE; +oxyCODONE TAB* 5 MG TAB PO PRN
[2018-11-26 13:49] VITALS: BP 142/86
--- NOTE | 2018-11-26 15:56 | OP ---
CC: PCP * DATE OF OPERATION: 11/26/18 - SDS DATE OF : 51 SURGEON: Bev Priest MD TECHNICAL TRAINING COORDINATOR: BHAVIN Baird. An assistant infant toddler teacher was needed for the entirety of the case to help with positioning, retraction, and was utilized throughout all portions of the case. ANESTHESIOLOGIST: Dr. Carrasco. ANESTHESIA: General interscalene block. PRE-OP DIAGNOSIS: Right shoulder large tear of the rotator cuff, supra and infraspinatus tendon with bicipital tendinitis and mild chondrosis. POST-OP DIAGNOSIS: Mild chondrosis, large to massive tear of the supraspinatus tendon with retraction and bicipital tendinitis versus tendinosis. OPERATIVE PROCEDURE: Right shoulder arthroscopy with: 1. Excessive glenohumeral debridement including chondroplasty. 2. Arthroscopic biceps tenodesis. 3. Rotator cuff repair of the massive tear of the supra and infraspinatus tendons in a double-row fashion augmented with a Regeneten patch. 4. Subacromial decompression with acromioplasty. DESCRIPTION OF PROCEDURE: The patient was greeted in the preoperative area by the attending surgeon. Correct extremity was marked, consent was confirmed. The patient underwent interscalene nerve block by the anesthesiologist after which he was brought back to the operating suite, placed in the supine on the operating room table, and then underwent general anesthesia and endotracheal intubation after which he was placed in a left lateral decubitus position with an axillary roll. All bony prominences were padded, secured with a peg board. The right arm was draped unsterile with 10 pounds of traction. Right shoulder was then prepped and draped in the usual sterile fashion beginning with chlorhexidine soap, scrub, and alcohol wipe, and a final prep with ChloraPrep. After appropriate surgical pause indicating site, side, procedure, and administration of antibiotics, a standard postero-lateral portal was made with an 11 blade. Scope was introduced into the joint, joint was examined. There was abundant synovitic changes. The joint was very stiff. The inferior recess appeared to be intact. There was some mild chondrosis of glenohumeral joint with grade 2 changes of the glenoid, grade 0 to 1 in the humerus. The anterior portal was made in an outside-in fashion. Shaver was used to debride back the anterior, posterior, superior labrum. Biceps had obvious fraying and synovitis and tendinosis and a decision was made to try to do an arthroscopic biceps tenodesis. The subscap appeared to be intact. There was evidence of a very large tear at the rotator cuff that was present including involvement of the supra and infraspinatus tendon. Once the debridement was complete, attention was directed to the subacromial space. The scope was introduced into the subacromial space. Lateral portal was made in an outside-in fashion. Shaver was used to debride back the abundant thick bursa. There was significant scar tissue to the deltoid as well as the acromion as well. The acromion was carefully skeletonized. Abundant scar was removed to allow for mobilization of tissues. Once the cuff was identified, it was found to be retracted medial to the level of the glenoid and involved both tendons. This is a much bigger tear than on the MRI. There was also a stump present indicative of an acute tear. It took time to mobilize the cuff and release the adhesions. As this was done, the cuff tissue was carefully mobilized, there was a small strand that was left to the supraspinatus anteriorly. The biceps was also visualized again. It was sitting in a groove but had abundant synovitis and erythema. The undersurface of the acromion was skeletonized and then a 4-0 oval richard was used to do an acromioplasty, remove the anterolateral spur, and release the CA ligament. After this was done, attention was directed to the biceps. The biceps was visualized and then through a separate incision, a 4.75 Healicoil was placed anteriorly just lateral to the bicipital groove. Sutures were passed through the tendon in a locked looping type of maneuver. This had been tied down after the biceps was tenotomized. Attention was directed to the rotator cuff. The greater tuberosity was skeletonized and then prepared in a usual fashion with a 4-0 oval richard and then carefully rasped to allow for good bony bleeding bed. The bone quality was very good with anchor placement, but 2 separate 4.75 Healicoil were then placed about the medial row in addition to the first anchor that was placed at the biceps. The sutures were used as well to pass that. First, a [id number] suture to try to help bring this large L-shape type of tear, was passed through the anterior aspect of the supraspinatus as well and then it was not tied yet to use it for traction. The sutures were then passed beginning with the first anchor that had been placed for the biceps in a horizontal mattress configuration and then the remaining sutures were placed in a horizontal mattress configuration. With tension on the rotator cuff, this has been tied down from anterior to posterior fashion. This helped to reapproximate the cuff to the tuberosity which was completely covered. The decision was made to do a double row fixation to allow for a second layer of fixation. Two 5.5 MultiFix were then placed passing 6 strands in combination from each of the knots for an anterolateral row fixation. The remaining sutures were passed for a posterolateral row fixation. This allowed for double row fixation. Because of the nature of this patient' s large tear, after images were obtained, decision was made to include a Regeneten patch to allow for healing and pain control. A size large Regeneten patch was then brought to the field and placed appropriately. Then the tendon chivo were used to secure the fascia to the tendon medially. After this was done, 3 bone chivo were used laterally to help fix it to the bone. The graft was found to be well fixed. Final images were obtained. The wounds were copiously irrigated with sterile saline. The wounds were closed with 3-0 nylon in an interrupted fashion. Sterile dressings were applied. A Cryo/Cuff and UltraSling were applied. He was awoken from anesthesia and transferred to PACU in stable condition. POSTOPERATIVE PLAN: He will be nonweightbearing in a sling for 6 weeks. Discharge on pain mediation. DVT prophylaxis considered but deferred due to no previous personal or family history. I will see the patient back in 10 to 14 days. [id number]/[facility] #: [id number] MTDD
== END | disposition home or self-care (01) ==
LOC: OR 05:47
PROVIDERS: ATTEND Orthopaedic Surgery
DX: S46.011A Strain of muscle(s) and tendon(s) of the rotator cuff of right shoulder, initial encounter (principal); M75.21 Bicipital tendinitis, right shoulder; M93.811 Other specified osteochondropathies, right shoulder; X58.XXXA Exposure to other specified factors, initial encounter; Y92.9 Unspecified place or not applicable; E11.9 Type 2 diabetes mellitus without complications; Z79.84 Long term (current) use of oral hypoglycemic drugs; G89.18 Other acute postprocedural pain; I10 Essential (primary) hypertension; J45.909 Unspecified asthma, uncomplicated; G47.33 Obstructive sleep apnea (adult) (pediatric); K76.0 Fatty (change of) liver, not elsewhere classified; F41.9 Anxiety disorder, unspecified
CPT/HCPCS: C1713; J0690; J1100; J1885; J2250; J2405; J2704; J2765; J2795; J3010

== ENCOUNTER → 2019-02-04 08:39 | Day surgery (SDC) | payer MEDICARE ==
[~2019-02-04 08:39] MED LIST changes: -Acetaminophen IV 1GM/100ML * 1,000 MG/100 ML VIAL IVPB ONE; -Acetaminophen IV 1GM/100ML * 100 ML ONE; +Cyclopentolate 1% OPTH.SOL* 2 ML BTL ONE; -Dexamethasone IV* 4 MG/ML 1 ML (4 MG) ONE; -Dexmedetomidine* 200 MCG/2 ML 2 ML VIAL ONE; -DiMENhydriNATE IV* 50 MG/ML VIAL IV PUSH PRN; -EPHEDrine (Pressors)* 50 MG/ML VIAL ONE; -HYDROmorphone INJ1* 1 MG/ML SYRINGE IV PRN; +Ketorolac 0.5% OPHTH (NF) 0.5 % 5 ML BTL ONE; -Ketorolac INJ* 30 MG/ML 1 ML VIAL ONE; -Lactated Ringers 1000 ML Bag* 1,000 ML IV SCH; +Lidocaine 1% MPF ** 5 ML VIAL ONE; -Lidocaine 2% PF * 5 ML VIAL ONE; +Lidocaine 2% w/ EPI 1:200,000* 20 ML SDV VIAL ONE; -Metoclopramide IV* 5 MG/ML 2 ML VIAL ONE; -Naloxone* 0.4 MG/ML 1 ML VIAL IV PRN; +Neomycin/Polymy/Dex OPTH.SUSP* MAXITROL 0.1% 5 ML ONE; -Ondansetron INJ* 2 MG/ML VIAL ONE; +Phenylephrine OPHTH SOL 2.5%* 2 ML ONE; +Povidone Iodine 5% OPTH* 30 ML BTL ONE; +Proparacaine 0.5% OPHTH.SOL* 15 ML BTL ONE; -Propofol* 10 MG/ML 20 ML BTL ONE; -ROPIVACAINE 5 MG/ML 30 ML BTL (0.5%) ONE; -Rocuronium* 10 MG/ML VIAL ONE; -Ropivacaine 0.2% * 2 MG/ML VIAL ONE; +acetaZOLAMIDE TAB* 250 MG ONE; -ceFAZolin 2 GM PREMIX in ORs 2 GM/50 ML BAG ONE; -fentaNYL* 50 MCG/ML 2 ML VIAL (100 MCG VIAL) ONE; -oxyCODONE TAB* 5 MG TAB PO PRN
[2019-02-04 11:25] VITALS: BP 137/81
--- NOTE | 2019-02-04 13:13 | OP ---
OPERATIVE NOTE: DATE OF OPERATION: 02/04/19 DATE OF : 51 SURGEON: Lazaro Goncalves MD. PREOPERATIVE DIAGNOSIS: Cataract, right eye. POSTOPERATIVE DIAGNOSIS: Cataract, right eye. OPERATIVE PROCEDURE: Extracapsular cataract extraction with intraocular lens implant, right eye. PROCEDURE: The patient was brought to the operating room after being given 1/2% Alcaine with epineph rine drops in the preoperative area. The eye was prepped and draped in the usual sterile fashion. S terile drape and eyelid speculum were placed. Again, topical 1/2% Alcaine with epinephrine was given . A paracentesis incision was made at the 9 o'clock position with the No.75 blade. Clear cornea inc ision 2.2 x 2.2 mm was created at the 12 o'clock position starting at the anterior limbus using the 2 .2 mm keratome. The anterior chamber was irrigated with 0.4 mL of 1% non-preservative intracameral l idocaine and filled with DisCoVisc. A capsulorrhexis was completed using the cystotome and the Utrat a forceps. Hydrodissection was performed with balanced salt solution. The lens nucleus was removed w ith the phacoemulsification handpiece without incident. Cortex was removed with the irrigation-aspir ation handpiece. The capsular bag was re-inflated using DisCoVisc and an [id number] 19.5 implant was ins erted with the shooter oriented to the 123-degree meridian. Horizontal reference anderson were made wit h the patient in the seated position in the preoperative area. All measurements were confirmed with ORA. The irrigation-aspiration handpiece was used to remove all residual DisCoVisc. The eye was ref illed with balanced salt solution and the wound checked and found to be watertight. Topical Maxitrol drops were given. [id number]/[facility] #: [id number]
== END | disposition home or self-care (01) ==
LOC: OREAST 08:39
PROVIDERS: ATTEND Specialist
DX: H25.811 Combined forms of age-related cataract, right eye (principal); E11.9 Type 2 diabetes mellitus without complications; Z79.84 Long term (current) use of oral hypoglycemic drugs; J45.909 Unspecified asthma, uncomplicated; I10 Essential (primary) hypertension; M19.90 Unspecified osteoarthritis, unspecified site; E78.00 Pure hypercholesterolemia, unspecified; G47.33 Obstructive sleep apnea (adult) (pediatric)
CPT/HCPCS: A9270-GY; J2250; V2787

== ENCOUNTER 2019-02-11 08:48 | Day surgery (SDC) | payer MEDICARE ==
[~2019-02-11 08:48] MED LIST changes: -Cyclopentolate 1% OPTH.SOL* 2 ML BTL ONE; -Ketorolac 0.5% OPHTH (NF) 0.5 % 5 ML BTL ONE; -Lidocaine 1% MPF ** 5 ML VIAL ONE; -Lidocaine 2% w/ EPI 1:200,000* 20 ML SDV VIAL ONE; -Midazolam* 1 MG/ML 2 ML VIAL (2 MG) ONE; -Neomycin/Polymy/Dex OPTH.SUSP* MAXITROL 0.1% 5 ML ONE; -Phenylephrine OPHTH SOL 2.5%* 2 ML ONE; -Povidone Iodine 5% OPTH* 30 ML BTL ONE; -Proparacaine 0.5% OPHTH.SOL* 15 ML BTL ONE; -acetaZOLAMIDE TAB* 250 MG ONE
[2019-02-11] MEDS ORDERED: Lidocaine 1% MPF ** 5 ML VIAL ONE (09:21)
[2019-02-11] MEDS ORDERED: Phenylephrine OPHTH SOL 2.5%* 2 ML ONE (09:21)
[2019-02-11] MEDS ORDERED: acetaZOLAMIDE TAB* 250 MG ONE (09:21)
[2019-02-11] MEDS ORDERED: Lidocaine 2% w/ EPI 1:200,000* 20 ML SDV VIAL ONE (09:21)
[2019-02-11] MEDS ORDERED: Proparacaine 0.5% OPHTH.SOL* 15 ML BTL ONE (09:21)
[2019-02-11] MEDS ORDERED: Cyclopentolate 1% OPTH.SOL* 2 ML BTL ONE (09:21)
[2019-02-11] MEDS ORDERED: Povidone Iodine 5% OPTH* 30 ML BTL ONE (09:21)
[2019-02-11] MEDS ORDERED: Ketorolac 0.5% OPHTH (NF) 0.5 % 5 ML BTL ONE (09:21)
[2019-02-11] MEDS ORDERED: Neomycin/Polymy/Dex OPTH.SUSP* MAXITROL 0.1% 5 ML ONE (09:21)
[2019-02-11] MEDS ORDERED: Sodium Citrate/Citric Acid* 15 ML UDC ONE (09:44)
[2019-02-11] MEDS ORDERED: Midazolam* 1 MG/ML 2 ML VIAL (2 MG) ONE ×2 (11:05→11:11)
[2019-02-11] MEDS ORDERED: hydrALAZINE IV* 20 MG/ML VIAL ONE (11:28)
--- NOTE | 2019-02-11 12:05 | OP ---
DATE OF OPERATION: 02/11/2019. DATE OF : 1955. SURGEON: Lazaro Goncalves M.D. PREOPERATIVE DIAGNOSIS: Cataract left eye. POSTOPERATIVE DIAGNOSIS: Cataract left eye. OPERATIVE PROCEDURE: Extracapsular cataract extraction with intraocular lens implant left eye. PROCEDURE: The patient was brought to the operating room after being given 1/2% Alcaine with epineph rine drops in the preoperative area. The eye was prepped and draped in the usual sterile fashion. S terile drape and eyelid speculum were placed. Again, topical 1/2% Alcaine with epinephrine was given . A paracentesis incision was made at the 3 o'clock position with the No.75 blade. Clear cornea inc ision 2.2 x 2.2-mm was created at the 6 o'clock position starting at the anterior limbus using the 2. 2-mm keratome. The anterior chamber was irrigated with 0.4 mL of 1% non-preservative intracameral li docaine and filled with DisCoVisc. A capsulorrhexis was completed using the cystotome and the Utrata forceps. Hydrodissection was performed with balanced salt solution. The lens nucleus was removed wi th the Phacoemulsification handpiece without incident. Cortex was removed with the irrigation-aspira tion handpiece. The capsular bag was re-inflated using DisCoVisc and an [id number] implant was insert ed with the shooter. The irrigation-aspiration handpiece was used to remove all residual DisCoVisc. The eye was refilled with balanced salt solution and the wound checked and found to be watertight. Topical Maxitrol drops were given. [id number] #: [id number]
[2019-02-11 12:10] VITALS: BP 131/83
== END 2019-02-11 12:06 | disposition home or self-care (01) ==
LOC: OREAST 08:48
PROVIDERS: ATTEND Specialist
DX: H25.812 Combined forms of age-related cataract, left eye (principal); E11.9 Type 2 diabetes mellitus without complications; Z79.84 Long term (current) use of oral hypoglycemic drugs; I10 Essential (primary) hypertension; M19.90 Unspecified osteoarthritis, unspecified site; E78.00 Pure hypercholesterolemia, unspecified; Z87.891 Personal history of nicotine dependence; J45.909 Unspecified asthma, uncomplicated
CPT/HCPCS: A9270-GY; J0360; J2250; V2632